=== PATIENT | female | born 1995 | race Caucasian/White ===

== ENCOUNTER 2018-11-28 01:01 | Emergency (ER) | payer MEDICAID ==
[~2018-11-28] VITALS: Ht 160 cm; Wt 65.3 kg
[2018-11-28 01:11] VITALS: BP 121/77
--- NOTE | 2018-11-28 03:09 | NUR ---
PT AMBULATED TO ER BED 4
--- NOTE | 2018-11-28 03:39 | NUR ---
PT TO ED WITH REPORT OF PAINFUL HEMORRHOID FOR THE PAST 3 DAYS WITH BRIGHT RED BLOOD. 1 MONTH AFTER . PT PLACED INTO BED, PENDING MD RAI.
[2018-11-28 05:10] LABS: BASOPHILS % (AUTO) 0.8 % (0.0-2.0); EOSINOPHILS # (AUTO) 0.1 K/uL (0-0.4); EOSINOPHILS % (AUTO) 2.8 % (0.0-4.0); HEMATOCRIT 37.4 % (36-48); HEMOGLOBIN 12.3 g/dL (12.0-16.0); LYMPHOCYTES % (AUTO) 41.2 % (20.5-51.1); MEAN CORPUSCULAR HEMOGLOBIN 29 pg (27-31); MEAN CORPUSCULAR HGB CONC 33 g/dL (33-37); MEAN CORPUSCULAR VOLUME 88.2 fL (80-94); MONOCYTES # (AUTO) 0.4 K/uL (0.8-1.0); MONOCYTES % (AUTO) 8.4 % (1.7-9.3); NEUTROPHILS # (AUTO) 2.3 K/uL (1.8-7.7); NEUTROPHILS % (AUTO) 46.8 % (42.2-75.2); PLATELET COUNT (AUTO) 248 K/uL (140-450); RED BLOOD CELL COUNT(AUTO) 4.24 MIL/uL (4.20-5.40); RED CELL DISTRIBUTION WIDTH 15.3 % (11.6-13.7)
[2018-11-28 06:04] VITALS: BP 117/68
--- NOTE | 2018-11-28 06:04 | NUR ---
Patient discharged with v/s stable. Written and verbal after care instructions given and explained. Patient verbalized understanding. Ambulatory with steady gait. All questions addressed prior to discharge. Advised to follow up with PMD.
== END 2018-11-28 06:04 | disposition home or self-care (01) ==
LOC: MED 01:01
DX: K64.9 Unspecified hemorrhoids (principal)
CPT/HCPCS: 36415; 81002; 81025; 85025; 99283

== ENCOUNTER 2019-08-12 21:49 | Emergency (ER) | payer MEDICAID, OTHER ==
[~2019-08-12] VITALS: Ht 160 cm; Wt 61.2 kg
[2019-08-12 21:50] VITALS: BP 144/90
--- NOTE | 2019-08-12 21:53 | NUR ---
TO BED # 12 AMBULATORY
--- NOTE | 2019-08-12 21:53 | NUR ---
TO LOBBY A/W BED AMBULATORY
--- NOTE | 2019-08-12 22:01 | NUR ---
PT AMBULATED TO BED #12
--- NOTE | 2019-08-12 22:19 | NUR ---
BIB SELF C/O HEMATURIA/ LOWER BACK PAIN/ PELVIC PAIN/ URINARY BURNING, FREQUENCY X1 WEEK. PT HAD A BABY 10 MONTHS AGO AND STATES SHE HAS BEEN TRYING TO GET FOR 2 MONTHS. PT REPORTS PAINFUL INTERCOURSE THAT PROGRESSED TO HEMATURIA AND URINARY SYMPTOMS. PAIN 10/10, LOWER BACK/ PELVIC CRAMPING. DENIES SOB/CP, FLU LIKE SYMPTOMS. RESP EVEN AND UNLABORED. PT STATES SHE HAS BEEN FEELING LIGHTHEADED AND DIZZY. ABD SOUNDS NORMOACTIVE IN ALL QUADRANTS. ABD SOFT/NON TENDER. NO PMH NKA
[2019-08-12 22:30] LABS: BASOPHILS % (AUTO) 0.6 % (0.0-2.0); EOSINOPHILS % (AUTO) 0.9 % (0.0-4.0); HEMATOCRIT 38.3 % (36-48); HEMOGLOBIN 12.5 g/dL (12.0-16.0); LYMPHOCYTES # (AUTO) 1.9 K/uL (2.5-16.5); LYMPHOCYTES % (AUTO) 39.1 % (20.5-51.1); MEAN CORPUSCULAR HEMOGLOBIN 30 pg (27-31); MEAN CORPUSCULAR HGB CONC 33 g/dL (33-37); MEAN CORPUSCULAR VOLUME 92.4 fL (80-94); MONOCYTES # (AUTO) 0.4 K/uL (0.8-1.0); MONOCYTES % (AUTO) 7.5 % (1.7-9.3); NEUTROPHILS # (AUTO) 2.5 K/uL (1.8-7.7); NEUTROPHILS % (AUTO) 51.9 % (42.2-75.2); PLATELET COUNT (AUTO) 278 K/uL (140-450); RED BLOOD CELL COUNT(AUTO) 4.15 MIL/uL (4.20-5.40); RED CELL DISTRIBUTION WIDTH 13.9 % (11.6-13.7); WHITE BLOOD COUNT (AUTO) 4.9 K/uL (4.8-10.8)
[2019-08-12 22:43] LABS: APPEARANCE,URINE SL CLOUDY (CLEAR); BILIRUBIN,URINE NEGATIVE (NEGATIVE); BLOOD, URINE NEGATIVE (NEGATIVE); COLOR,URINE YELLOW (YELLOW); LEUKOCYTE ESTERASE ,URINE NEGATIVE (NEGATIVE); NITRITE, URINE NEGATIVE (NEGATIVE); UGLUCOSE NEGATIVE (NEGATIVE)
[2019-08-12 22:53] LABS: RBC,URINE NONE SEEN /HPF (0-5); WBC,URINE 0-5 /HPF (0-5)
--- NOTE | 2019-08-12 23:42 | NUR ---
Ultrasound at bedside.
[2019-08-13 01:11] VITALS: BP 144/90
== END 2019-08-13 01:11 | disposition home or self-care (01) ==
LOC: MED 21:49
DX: N83.201 Unspecified ovarian cyst, right side (principal)
CPT/HCPCS: 36415; 76856; 81001; 81025; 84702; 85025; 86900; 86901; 87086; 93976; 99283; Q0092

== ENCOUNTER 2019-09-20 18:35 | Emergency (ER) | payer OTHER ==
[~2019-09-20] VITALS: Ht 160 cm; Wt 60.3 kg
[2019-09-20 18:59] VITALS: BP 115/64
--- NOTE | 2019-09-20 19:05 | NUR ---
URINE CUP HANDED TO PT FOR SAMPLE
--- NOTE | 2019-09-20 19:42 | NUR ---
PT AMBULATED TO BED 2
--- NOTE | 2019-09-20 19:45 | NUR ---
23 YEAR OLD FEMALE COMPLAINS OF VOMITTING IN MORNING X 2 WEEKS. PATIENT STATES ITS HARD TO KEEP WATER AND FOOD DOWN. PATIENT BOWEL SOUNDS ACTIVE X4, NONTENDER, NONDISTENDED, SOFT. PATIENT AOX4, BREATHING EVEN AND UNLABORED, SKIN WARM AND DRY. BED IN LOWEST POSITION, LOCKED, BED RAIL UPX1. PMH - KIDNEY STONE, OVARIAN CYST ALLERGIES - NKA
[2019-09-20] MEDS ORDERED: METOCLOPRAMIDE 10 MG/2 ML INJ VIAL IVP ONE (20:15)
[2019-09-20] MEDS ORDERED: LACTATED RINGERS 1,000 ML IV ONE (20:15)
--- NOTE | 2019-09-20 21:00 | NUR ---
PATIENT AOX4, BREATHING EVEN AND UNLABORED
[2019-09-20 22:00] VITALS: BP 94/64
--- NOTE | 2019-09-20 22:00 | NUR ---
Patient discharged with v/s stable. Written and verbal after care instructions about hyperemesis gravidarum diet given and explained. Patient alert, oriented and verbalized understanding of instructions. Ambulatory with steady gait. All questions addressed prior to discharge. ID band removed. Patient advised to follow up with PMD. Rx of reglan given. Patient educated on indication of medication including possible reaction and side effects. Opportunity to ask questions provided and answered.
== END 2019-09-20 22:00 | disposition home or self-care (01) ==
LOC: MED 18:35
DX: O21.0 Mild hyperemesis gravidarum (principal); Z87.442 Personal history of urinary calculi
CPT/HCPCS: 81025; 96361; 96374; 99283; J2765; J7120

== ENCOUNTER 2019-10-19 11:32 | Emergency (ER) | payer OTHER ==
[~2019-10-19] VITALS: Ht 160 cm; Wt 58.5 kg
[2019-10-19 11:43] VITALS: BP 107/78
[2019-10-19 12:33] LABS: BASOPHILS % (AUTO) 0.3 % (0.0-2.0); EOSINOPHILS % (AUTO) 0.2 % (0.0-4.0); HEMATOCRIT 39.4 % (36-48); HEMOGLOBIN 13.2 g/dL (12.0-16.0); LYMPHOCYTES # (AUTO) 1.1 K/uL (2.5-16.5); LYMPHOCYTES % (AUTO) 13.5 % (20.5-51.1); MEAN CORPUSCULAR HEMOGLOBIN 31 pg (27-31); MEAN CORPUSCULAR HGB CONC 34 g/dL (33-37); MEAN CORPUSCULAR VOLUME 92.8 fL (80-94); MONOCYTES # (AUTO) 0.4 K/uL (0.8-1.0); NEUTROPHILS # (AUTO) 6.3 K/uL (1.8-7.7); PLATELET COUNT (AUTO) 269 K/uL (140-450); RED BLOOD CELL COUNT(AUTO) 4.25 MIL/uL (4.20-5.40); RED CELL DISTRIBUTION WIDTH 12.9 % (11.6-13.7); WHITE BLOOD COUNT (AUTO) 7.8 K/uL (4.8-10.8)
[2019-10-19 12:35] LABS: APPEARANCE,URINE CLEAR (CLEAR); BILIRUBIN,URINE 1+ (NEGATIVE); BLOOD, URINE 3+ (NEGATIVE); COLOR,URINE YELLOW (YELLOW); LEUKOCYTE ESTERASE ,URINE 1+ (NEGATIVE); NITRITE, URINE NEGATIVE (NEGATIVE); UGLUCOSE NEGATIVE (NEGATIVE)
[2019-10-19] MEDS ORDERED: ONDANSETRON 4 MG ODT PO ONE (13:00)
[2019-10-19] MEDS ORDERED: MORPHINE SULFATE 4 MG/ML SYR IM ONE (13:00)
[2019-10-19 13:14] LABS: ALBUMIN 3.8 g/dL (3.4-5.0); CARBON DIOXIDE 25.6 mmol/L (21-32); CREATININE 0.7 mg/dL (0.6-1.3); POTASSIUM 3.6 mmol/L (3.5-5.1)
[2019-10-19 13:22] LABS: RBC,URINE NONE SEEN /HPF (0-5); WBC,URINE 20-60 /HPF (0-5)
[2019-10-19] MEDS ORDERED: MORPHINE SULFATE 4 MG/ML SYR IVP ONE ×2 (14:15→15:10)
[2019-10-19 15:48] VITALS: BP 110/73
== END 2019-10-19 15:48 | disposition home or self-care (01) ==
LOC: MED 11:32
DX: O20.0 Threatened abortion (principal); Z3A.10 10 weeks gestation of pregnancy; Z87.442 Personal history of urinary calculi
CPT/HCPCS: 36415; 76801; 80053; 81001; 81025; 84702; 85025; 86886; 86900; 86901; 87086; 96372; 96374; 96376; 99285; J2270; Q0092; Q0162; 29105; 96375

== ENCOUNTER 2021-10-08 10:26 | Emergency (ER) | payer OTHER ==
[~2021-10-08] VITALS: Ht 160 cm; Wt 67.1 kg
[2021-10-08 10:35] VITALS: BP 120/80
--- NOTE | 2021-10-08 10:39 | NUR ---
PATIENT AMBULATED TO BED 3.
[2021-10-08] MEDS ORDERED: TETRACAINE HCL/PF 0.5% OPTH 4 ML BTL OP ONE (11:10)
[2021-10-08] MEDS ORDERED: FLUORESCEIN OPTH STRIP 1 MG OP ONE (11:10)
[2021-10-08] MEDS ORDERED: SODIUM CHLORIDE FLUSH 10 ML SYR MC ONE (11:10)
--- NOTE | 2021-10-08 11:20 | NUR ---
25 y/o female, c/o left eye pain that started yesterday with itching and tearing. denies injury to face or eyes. pt states she fell asleep with eye contacts in, was able to get contacts out, but still has irritation on left side. left eye appears to have redness, no discharge, bleeding or orbital edema. states pressure pain 8/10 at this time. pmh: asthma med: denies nka
[2021-10-08] MEDS ORDERED: CIPROFLOXACIN 0.3% OP 2.5 ML BTL LEFT EYE ONE (11:40)
[2021-10-08] MEDS ORDERED: CIPR5SOL3 LEFT EYE (11:42)
[2021-10-08 12:28] VITALS: BP 120/80
--- NOTE | 2021-10-08 12:28 | NUR ---
Patient discharged with v/s stable. Written and verbal after care instructions given and explained. Patient alert, oriented and verbalized understanding of instructions. Ambulatory with friend to car. All questions addressed prior to discharge. ID band removed. Patient advised to follow up with PMD. Rx of ciprofloxacin hcl (sent) given. Patient educated on indication of medication including possible reaction and side effects. Opportunity to ask questions provided and answered. work note given
[2021-10-09] MEDS ORDERED: CIPR7.5S OT (22:29)
== END 2021-10-08 12:28 | disposition home or self-care (01) ==
LOC: MED 10:26
DX: S05.02XA Injury of conjunctiva and corneal abrasion without foreign body, left eye, initial encounter (principal); J45.909 Unspecified asthma, uncomplicated; Z87.442 Personal history of urinary calculi; Z98.890 Other specified postprocedural states; X58.XXXA Exposure to other specified factors, initial encounter; Y93.89 Activity, other specified; Y92.89 Other specified places as the place of occurrence of the external cause; Y99.8 Other external cause status
CPT/HCPCS: 99284

== ENCOUNTER 2021-10-09 21:58 | Emergency (ER) | payer OTHER ==
[~2021-10-09] VITALS: Ht 160 cm; Wt 67.1 kg
[~2021-10-09 21:58] MED LIST: CIPR5SOL3 LEFT EYE
[2021-10-09 22:02] VITALS: BP 123/75
--- NOTE | 2021-10-09 22:11 | NUR ---
PT AMBULATORY TO BED 08 W STEADY GAIT.
[2021-10-09] MEDS ORDERED: CIPR7.5S OT (22:29)
--- NOTE | 2021-10-09 22:42 | NUR ---
PT WAS DISCHARGED BY DR. HERNANDEZ.
== END 2021-10-09 22:42 | disposition home or self-care (01) ==
LOC: MED 21:58
DX: H16.002 Unspecified corneal ulcer, left eye (principal); J45.909 Unspecified asthma, uncomplicated; Z87.448 Personal history of other diseases of urinary system; Z98.890 Other specified postprocedural states; Z79.2 Long term (current) use of antibiotics
CPT/HCPCS: 99283